=== PATIENT | male | born 1965 | race African-American/Black ===

== ENCOUNTER 2017-03-31 12:23 | Emergency (ER) | payer OTHER ==
[2017-03-31 12:51] VITALS: BP 134/73; PULSE 84; TEMP 97.5; BMI 30.2
[2017-03-31] MEDS ORDERED: DIPHTH,PERTUSS(ACELL),TET 0.5 ML DISP.SYRIN IM ONE (13:40)
[2017-03-31] MEDS ORDERED: IBUPROFEN 400 MG TABLET (FP) PO ONE (13:57)
--- NOTE | 2017-03-31 14:03 | PDOC ---
History of Present Illness - General Chief Complaint: Laceration Stated Complaint: INJURY Time Seen by Provider: 03/31/17 13:40 History Source: Patient Exam Limitations: No Limitations - History of Present Illness Initial Comments: 03/31/17 13:58 injured left thrid finger on a nail that was sticking out of wood at home. unknown tetanus. Pt has FROM of the digit. Timing/Duration: reports: just prior to arrival Severity: Yes: mild Location: reports: extremities (left middle digit) Past History - Past Medical History Allergies/Adverse Reactions: Allergies Allergy/AdvReac Type Severity Reaction Status Date / Time malaria medication Allergy Uncoded 03/31/17 12:49 chloroquine Home Medications: Ambulatory Orders Cephalexin [Keflex] 500 mg PO BID #14 capsule 03/31/17 Asthma: Yes COPD: No - Suicide/Smoking/Psychosocial Hx Smoking History: Never smoked Have you smoked in the past 12 months: No Information on smoking cessation initiated: No Hx Alcohol Use: No Drug/Substance Use Hx: No Substance Use Type: None Review of Systems - Review of Systems Able to Perform ROS?: Yes Is the patient limited Maltese proficient: No Constitutional: No: Symptoms Reported HEENTM: No: Symptoms Reported Respiratory: No: Symptoms reported Cardiac (ROS): No: Symptoms Reported ABD/GI: No: Symptoms Reported : No: Symptoms Reported Integumentary: Yes: See HPI *Physical Exam - Vital Signs Last Vital Signs Temp Pulse Resp BP Pulse Ox 97.5 F L 84 18 134/73 100 03/31/17 12:49 03/31/17 12:49 03/31/17 12:49 03/31/17 12:49 03/31/17 12:49 - Physical Exam General Appearance: Yes: Nourished, Appropriately Dressed HEENT: positive: EOMI, JARRETT Neck: positive: Supple Musculoskeletal: positive: Normal Inspection Extremity: positive: Normal Capillary Refill, Normal Inspection, Normal Range of Motion, Other (puncture wound noted x2 to the dorsal surface of third digit, no active bleeding , FROM nv intact) Integumentary: positive: Normal Color, Dry, Warm Neurologic: positive: Fully Oriented, Alert, Normal Mood/Affect, Normal Response , Motor Strength 5/5 Procedures - Laceration/Wound Repair Left Volar 3rd digit Wound Length: to 2.5 cm Wound Explored: contaminated Irrigated w/ Saline: Yes Betadine Prep: Yes Sterile Dressing Applied: Yes Splint Applied: Yes Progress: 03/31/17 14:01 irrigated and cleaned with betadine and peroxide bacitracin placed and bandaid and finger splint ED Treatment Course - RADIOLOGY Radiology Studies Ordered: Category Date Time Status FINGER(S) LEFT [RAD] Stat Radiology 03/31/17 13:57 Ordered Medical Decision Making - Medical Decision Making 03/31/17 14:03 cc: left middle digit with puncture wound this AM on a nail no bleeding nv intact FROM xray ordered, wound irrigated and wound care done finger splint keflex for 5 days *DC/Admit/Observation/Transfer Diagnosis at time of Disposition: Puncture wound - Discharge Dispostion Disposition: HOME Condition at time of disposition: Good - Prescriptions Prescriptions: Cephalexin [Keflex] 500 mg PO BID #14 capsule - Referrals Referrals: Dung Mcclain [Primary Care Provider] - Oseas Min MD [Staff Physician] - - Patient Instructions Additional Instructions: keep clean and dry take motrin 800mg every 6hrs for pain keep the splint in place at all times for 2 days take keflex as directed for5 days follow with the plastic surgeon for follow up Dr. Min if any difficulty moving finger any numbness or tingling appears otherwise you can also return to the ER for any increased pain, drainage or swelling or any other concerns - Post Discharge Activity
== END 2017-03-31 15:09 | disposition home or self-care (01) ==
LOC: JERFT 12:23
PROC: 3E0234Z Introduction of Serum, Toxoid and Vaccine into Muscle, Percutaneous Approach (ICD-10-PCS; principal; 2017-03-31)
PROC: 2W3KX1Z Immobilization of Left Finger using Splint (ICD-10-PCS; 2017-03-31)
DX: S61.233A Puncture wound without foreign body of left middle finger without damage to nail, initial encounter (principal); W45.0XXA Nail entering through skin, initial encounter; Y93.89 Activity, other specified; Y92.018 Other place in single-family (private) house as the place of occurrence of the external cause; Y99.8 Other external cause status
CPT/HCPCS: 73140-TC-LT; 90715; 99281-25

== ENCOUNTER 2021-01-27 09:02 | Emergency (ER) | payer BC ==
[2021-01-27 09:09] VITALS: BP 130/81; PULSE 90; TEMP 98; BMI 30.8
[2021-01-27] MEDS ORDERED: ACETAMINOPHEN 500 MG TABLET (FP) PO ONE (09:36)
[2021-01-27] MEDS ORDERED: LIDOCAINE 5% TOPICAL PATCH TP ONE (09:36)
[2021-01-27] MEDS ORDERED: KETOROLAC TROMETHAMINE 30 MG/1 ML VIAL IM ONE (09:36)
[2021-01-27] MEDS ORDERED: ACETAMINOPHEN 325 MG TABLET (FP) ONE (09:41)
[2021-01-27] MEDS ORDERED: KETOROLAC TROMETHAMINE 30 MG/1 ML VIAL ONE (09:42)
[2021-01-27] MEDS ORDERED: LIDOCAINE 5% TOPICAL PATCH ONE (09:42)
[2021-01-27] MEDS ORDERED: LIDOCAINE PATCH REMOVAL MC ONE (22:00)
== END 2021-01-27 11:07 | disposition home or self-care (01) ==
LOC: JER 09:02
PROC: 3E0233Z Introduction of Anti-inflammatory into Muscle, Percutaneous Approach (ICD-10-PCS; principal; 2021-01-27)
DX: R07.82 Intercostal pain (principal)
CPT/HCPCS: 71046-TC-FY; 71101-TC-RT-FY; 99284-25

== ENCOUNTER 2021-10-27 08:52 | Emergency (ER) | payer BC ==
[2021-10-27 08:59] VITALS: BP 113/64; PULSE 74; RESP 18; TEMP 97.9; BMI 30.8
[2021-10-27] MEDS ORDERED: SODIUM CHLORIDE 1,000 ML IV STA (09:17)
[2021-10-27] MEDS ORDERED: ACETAMINOPHEN 1000 MG/100 ML BAG IVPB ONE (09:18)
[2021-10-27] MEDS ORDERED: METOCLOPRAMIDE HCL INJECTION 10 MG/2 ML VIAL IVPUSH ONE (09:19)
[2021-10-27] MEDS ORDERED: FAMOTIDINE 20 MG/50 ML IVPB 20 MG/50 ML MG IVPB ONE (09:25)
[2021-10-27] MEDS ORDERED: METOCLOPRAMIDE HCL INJECTION 10 MG/2 ML VIAL ONE (09:36)
[2021-10-27] MEDS ORDERED: ACETAMINOPHEN INJECTION 100 ML IVPB ONE (09:37)
[2021-10-27] MEDS ORDERED: FAMOTIDINE 10 MG/ML VIAL IVPB ONE (09:37)
[2021-10-27 09:52] LABS: BASO % 1.1 % (0-2.0); EOS % 1.9 % (0-4.5); HEMATOCRIT 43.1 % (35.4-49); HEMOGLOBIN 15.4 GM/dL (11.7-16.9); LYMPH % 41.5 % (8-40); MCH 28.2 pg (25.7-33.7); MCHC 35.6 g/dl (32.0-35.9); MEAN CELL VOLUME 79.3 fl (80-96); NEUT % 49.5 % (42.8-82.8); PLATELET COUNT 200 10^3/uL (134-434); RBC 5.44 M/mm3 (4.00-5.60); WHITE BLOOD COUNT 5.4 K/mm3 (4.0-10.0)
[2021-10-27 10:09] LABS: ALBUMIN 3.6 g/dl (3.4-5.0); BLOOD UREA NITROGEN 12.2 mg/dL (7-18)
[2021-10-27 10:11] LABS: URINE APPEARANCE CLEAR; URINE BILIRUBIN NEGATIVE (NEGATIVE); URINE COLOR YELLOW; URINE GLUCOSE (UA) NEGATIVE (NEGATIVE); URINE KETONE TRACE (NEGATIVE); URINE LEUK ESTERASE NEGATIVE (NEGATIVE); URINE NITRITE NEGATIVE (NEGATIVE); URINE PROTEIN NEGATIVE (NEGATIVE); URINE UROBILINOGEN 0.2 mg/dL (0.2-1.0)
[2021-10-27 10:12] LABS: CREATININE 1.2 mg/dL (0.55-1.3)
[2021-10-27 10:13] LABS: BILIRUBIN,TOTAL 0.7 mg/dL (0.2-1)
[2021-10-27 10:14] LABS: TOT PROT 7.2 g/dl (6.4-8.2)
== END 2021-10-27 12:08 | disposition home or self-care (01) ==
LOC: JER 08:52
PROC: 3E033NZ Introduction of Analgesics, Hypnotics, Sedatives into Peripheral Vein, Percutaneous Approach (ICD-10-PCS; principal; 2021-10-27)
PROC: 3E033GC Introduction of Other Therapeutic Substance into Peripheral Vein, Percutaneous Approach (ICD-10-PCS; 2021-10-27)
PROC: 3E033GC Introduction of Other Therapeutic Substance into Peripheral Vein, Percutaneous Approach (ICD-10-PCS; 2021-10-27)
PROC: 3E033GC Introduction of Other Therapeutic Substance into Peripheral Vein, Percutaneous Approach (ICD-10-PCS; 2021-10-27)
PROC: 3E0337Z Introduction of Electrolytic and Water Balance Substance into Peripheral Vein, Percutaneous Approach (ICD-10-PCS; 2021-10-27)
DX: R51.9 Headache, unspecified (principal); K21.9 Gastro-esophageal reflux disease without esophagitis
CPT/HCPCS: 36415; 76705-TC; 80053; 81003; 83690; 85025; 87086; 99284-25